=== PATIENT | male | born 1955 | race African-American/Black ===

== ENCOUNTER → 2020-07-29 | Outpatient (CLI) | payer OTHER ==
[2013-09-05 10:30] VITALS: BP 113/64
--- NOTE | 2020-07-29 17:41 | CARD ---
MR#: [id number] Date of Study: 07/29/2020 Ordering Physician: JARROD NELSON, Referring Physician: JARROD NELSON, Tech: Bryanna Coleman [facility] APPROVED REPORT EXAM: Two-dimensional and M-mode echocardiogram with Doppler and color Doppler. Other Information Quality : AverageHR: 76bpm Rhythm : NSR INDICATION Arrhythmia Atrial Fibrillation RISK FACTORS Hypertension Hyperlipidemia 2D DIMENSIONS RVDd3.3 (2.9-3.5cm)Left Atrium(2D)3.9 (1.6-4.0cm) IVSd0.7 (0.7-1.1cm)Aortic Root(2D)3.2 (2.0-3.7cm) LVDd4.8 (3.9-5.9cm)LVOT Diameter2.1 (1.8-2.4cm) PWd0.8 (0.7-1.1cm)LVDs3.4 (2.5-4.0cm) FS (%) 29.4 %SV61.2 ml LVEF(%)56.3 (>50%) Aortic Valve AoV Peak Olegario.127.6cm/sAoV VTI22.4cm AO Peak GR.6.5mmHgLVOT Peak Olegario.85.6cm/s AO Mean GR.3mmHgAVA (VMAX)2.26cm2 Mitral Valve MV E Jfnjwhmk49.6cm/sMV DECEL [id number] MV A Frpvnnph33.1cm/sE/A Ratio1.0 Tricuspid Valve TR P. Urkpjach052do/sTR Peak Gr.37mmHg Pulmonary Vein S1 Oebzitns57.3cm/sD2 Rqqnubur68.9cm/s PVa [id number] LEFT VENTRICLE The left ventricle is normal size. There is normal left ventricular wall thickness. The left ventricu lar systolic function is normal and the ejection fraction is within normal range. Estimated ejection fraction 55-60%. There is normal LV segmental wall motion. Tissue Doppler imaging reveals mild left v entricular diastolic dysfunction. RIGHT VENTRICLE The right ventricle is normal size. There is normal right ventricular wall thickness. The right ventr icular systolic function is normal. ATRIA The left atrium size is normal. The right atrium size is normal. The interatrial septum is intact wit h no evidence for an atrial septal defect or patent foramen ovale as noted on 2-D or Doppler imaging. AORTIC VALVE The aortic valve is normal in structure and function. Doppler and Color Flow revealed no significant aortic regurgitation. There is no significant aortic valvular stenosis. MITRAL VALVE The mitral valve is normal in structure and function. There is no evidence of mitral valve prolapse. There is no mitral valve stenosis. Doppler and Color-flow revealed trace mitral regurgitation. TRICUSPID VALVE The tricuspid valve is normal in structure and function. Doppler and Color Flow revealed mild tricusp id regurgitation. Estimated PAP 40 mmHg. There is no tricuspid valve stenosis. PULMONIC VALVE Doppler and Color Flow revealed no pulmonic valvular regurgitation. There is no pulmonic valvular nimisha nosis. GREAT VESSELS The aortic root is normal in size. The ascending aorta is normal in size. The IVC is normal in size a nd collapses >50% with inspiration. PERICARDIAL EFFUSION There is no evidence of significant pericardial effusion. Critical Notification Critical Value: No <Conclusion> The left ventricular systolic function is normal and the ejection fraction is within normal range. E stimated ejection fraction 55-60%. There is normal LV segmental wall motion. Signed by : Rey Vogel, Electronically Approved : 07/29/2020 17:41:19
== END ==
LOC: ECHO 12:47
PROVIDERS: ATTEND Family Medicine
DX: I07.1 Rheumatic tricuspid insufficiency (principal); I48.91 Unspecified atrial fibrillation; R06.02 Shortness of breath
CPT/HCPCS: 93306